=== PATIENT | female | born 1980 | race African-American/Black ===

== ENCOUNTER 2018-01-20 18:09 | Emergency (ER) | payer SELFPAY ==
[2018-01-20] MEDS ORDERED: Famotidine/PF 20 mg/2ml Vial ONE (18:29)
[2018-01-20] MEDS ORDERED: EPINEPHrine 1 MG/ML AMP ONE (19:36)
== END 2018-01-20 20:41 | disposition home or self-care (01) ==
LOC: ERS 18:09
DX: L50.0 Allergic urticaria (principal)
CPT/HCPCS: 94760; 96372; 96374; J0171; S0028